=== PATIENT | male | born 1980 | race Caucasian/White ===

== ENCOUNTER 2017-10-14 08:57 | Emergency (ER) | payer OTHER ==
[~2017-10-14] VITALS: Ht 185.4 cm; Wt 129.3 kg
[2017-10-14 09:01] VITALS: BP_SYST 165
[2017-10-14 09:35] VITALS: BP_SYST 165
== END 2017-10-14 09:35 | disposition home or self-care (01) ==
LOC: SED 08:57
DX: L03.012 Cellulitis of left finger (principal); Z88.1 Allergy status to other antibiotic agents
CPT/HCPCS: 99283

== ENCOUNTER 2018-03-02 09:17 | Emergency (ER) | payer OTHER ==
[~2018-03-02] VITALS: Ht 188 cm; Wt 158.3 kg
[2018-03-02 09:25] VITALS: BP_SYST 161
[2018-03-02 11:29] VITALS: BP_SYST 145
== END 2018-03-02 11:29 | disposition home or self-care (01) ==
LOC: SED 09:17
DX: L03.032 Cellulitis of left toe (principal); F41.9 Anxiety disorder, unspecified; F32.9 Major depressive disorder, single episode, unspecified; J45.909 Unspecified asthma, uncomplicated; R03.0 Elevated blood-pressure reading, without diagnosis of hypertension; Z88.1 Allergy status to other antibiotic agents
CPT/HCPCS: 99284

== ENCOUNTER 2019-09-18 14:53 | Emergency (ER) | payer OTHER ==
[~2019-09-18] VITALS: Ht 188 cm; Wt 147.4 kg
[2019-09-18 15:30] VITALS: BP_SYST 140
[2019-09-18] MEDS ORDERED: NACL 0.9% 1,000 ML IV ONE (17:09)
[2019-09-18] MEDS ORDERED: NACL 0.9% 2,000 ML IV ONE (17:15)
[2019-09-18] MEDS ORDERED: INSULIN REGULAR, HUMAN 10 UNITS/0.1 ML INJ IVP ONE (17:15)
[2019-09-18 17:41] LABS: BASOPHILS # (AUTO) 0.1 K/uL (0.0-0.2); EOSINOPHILS # (AUTO) 0.1 K/uL (0.0-0.4); EOSINOPHILS % (AUTO) 1.2 % (0.0-4.0); HEMATOCRIT 47.2 % (36-54); HEMOGLOBIN 15.5 g/dL (14.0-18.0); LYMPHOCYTES # (AUTO) 2.7 K/uL (1.0-5.5); LYMPHOCYTES % (AUTO) 37.5 % (20.5-51.5); MEAN CORPUSCULAR HEMOGLOBIN 28 pg (27-31); MEAN CORPUSCULAR HGB CONC 33 % (32-36); MEAN CORPUSCULAR VOLUME 85 fL (79.0-98.0); MONOCYTES # (AUTO) 0.4 K/uL (0.0-1.0); MONOCYTES % (AUTO) 5.6 % (1.7-9.3); NEUTROPHILS % (AUTO) 54.7 % (40.0-70.0); PLATELET COUNT (AUTO) 175 K/uL (130-430); RED BLOOD CELL COUNT(AUTO) 5.54 MIL/uL (4.2-6.2); RED CELL DISTRIBUTION WIDTH 14.1 % (9.0-15.0); WHITE BLOOD COUNT (AUTO) 7.2 K/uL (4.8-10.8)
[2019-09-18 17:53] LABS: CALCIUM 9.1 mg/dL (8.4-11.0); CREATININE 0.98 mg/dL (0.55-1.30); PROTHROMBIN TIME 9.6 SECS (9.5-12.5)
[2019-09-18 17:58] LABS: TOTAL BILIRUBIN 0.2 mg/dL (0.0-1.0)
--- NOTE | 2019-09-18 18:47 | NUR ---
Patient to ER bed 7 to gown for evaluation. Side rails up.
--- NOTE | 2019-09-18 18:50 | NUR ---
pt arrives from home w/ BS of 307. pt is newly dx w/ DM and is not complaint w/ meds
--- NOTE | 2019-09-18 19:10 | NUR ---
# 22 gauge angiocath placed to right hand. Use of asceptic technique. Opsite placed over site. Blood return noted. Blood for lab drawn from site. Flushed with 10 cc of normal saline. No evidence of infiltration noted. Patient tolerated well.
--- NOTE | 2019-09-18 19:15 | NUR ---
current BS is 258. medicated w/ Insulin 4 units.
[2019-09-18 19:35] LABS: BILIRUBIN,URINE NEGATIVE (NEGATIVE); BLOOD, URINE NEGATIVE (NEGATIVE); CLARITY/URINE CLEAR (CLEAR); COLOR,URINE YELLOW (YELLOW); GLUCOSE,URINE 3+ (NEGATIVE); KETONES,URINE TRACE (NEGATIVE); LEUKOCYTE ESTERASE ,URINE NEGATIVE (NEGATIVE); NITRITE, URINE NEGATIVE (NEGATIVE); PROTEIN URINE NEGATIVE (NEGATIVE)
--- NOTE | 2019-09-18 19:38 | NUR ---
report given to Garrett VAUGHN. pt is in stable condition
--- NOTE | 2019-09-18 19:38 | NUR ---
No needs verbalized at this time.
--- NOTE | 2019-09-18 20:00 | NUR ---
Pt seen by Dr. Grimm on previous shift.
[2019-09-18 20:10] VITALS: BP_SYST 132
[2019-09-18 20:34] LABS: BACTERIA,URINE RARE /HPF (None Seen); RBC,URINE NONE SEEN /HPF (0-3); WBC,URINE 0-3 /HPF (0-3)
[2019-09-18 20:36] LABS: MUCUS,URINE None Seen /LPF (None Seen)
== END 2019-09-18 20:10 | disposition home or self-care (01) ==
LOC: SED 14:53
DX: E11.65 Type 2 diabetes mellitus with hyperglycemia (principal); E66.9 Obesity, unspecified; I10 Essential (primary) hypertension; J45.909 Unspecified asthma, uncomplicated; F32.9 Major depressive disorder, single episode, unspecified; Z88.1 Allergy status to other antibiotic agents; Z68.41 Body mass index [BMI] 40.0-44.9, adult
CPT/HCPCS: 36415; 80053; 81000; 82150; 82962; 83605; 83690; 85025; 85610; 85730; 87040; 96361; 96374; 99283; J1815; J7030

== ENCOUNTER 2021-03-15 21:27 | Emergency (ER) | payer OTHER ==
[~2021-03-15] VITALS: Ht 185.4 cm; Wt 145.1 kg
[2021-03-15 21:30] VITALS: BP_SYST 142
--- NOTE | 2021-03-15 21:36 | NUR ---
Patient to ER bed 5 to gown for evaluation. Side rails up. Report given to Edmond VAUGHN.
--- NOTE | 2021-03-15 21:40 | NUR ---
Pt BIB BLS from home c/o constipation x5 days, +chills. Pt reports taking Colace and Miralax with no relief in symptoms. +Nausea
--- NOTE | 2021-03-15 22:15 | NUR ---
Pt STEFAN to CT
[2021-03-15 22:19] LABS: BASOPHILS % (AUTO) 0.2 % (0.0-2.0); EOSINOPHILS % (AUTO) 0.6 % (0.0-4.0); HEMATOCRIT 42.5 % (36-54); LYMPHOCYTES # (AUTO) 1.7 K/uL (1.0-5.5); LYMPHOCYTES % (AUTO) 28.1 % (20.5-51.5); MEAN CORPUSCULAR HEMOGLOBIN 27 pg (27-31); MEAN CORPUSCULAR HGB CONC 33 % (32-36); MEAN CORPUSCULAR VOLUME 83 fL (79.0-98.0); MONOCYTES % (AUTO) 0.5 % (1.7-9.3); NEUTROPHILS # (AUTO) 4.2 K/uL (1.8-7.7); NEUTROPHILS % (AUTO) 70.6 % (40.0-70.0); PLATELET COUNT (AUTO) 179 K/uL (130-430); RED BLOOD CELL COUNT(AUTO) 5.12 MIL/uL (4.2-6.2); RED CELL DISTRIBUTION WIDTH 14.4 % (9.0-15.0)
[2021-03-15 22:21] LABS: CREATININE 1.26 mg/dL (0.55-1.30); POTASSIUM 3.8 mmol/L (3.5-5.1)
[2021-03-15 22:27] LABS: ALBUMIN 3.7 g/dL (3.4-4.8); TOTAL BILIRUBIN 0.5 mg/dL (0.0-1.0)
--- NOTE | 2021-03-15 22:30 | NUR ---
Pt back from CT
[2021-03-15 22:32] LABS: PROTHROMBIN TIME 10.4 SECS (9.5-12.5)
--- NOTE | 2021-03-15 22:34 | NUR ---
Dr. Zavaleta at bedside for MSE.
[2021-03-15] MEDS ORDERED: NACL 0.9% 1,000 ML IV ONE (23:00)
--- NOTE | 2021-03-15 23:00 | NUR ---
# 20 gauge angiocath placed to RIGHT HAND. Use of asceptic technique. Opsite placed over site. Blood return noted. Flushed with 10 cc of normal saline. No evidence of infiltration noted. Patient tolerated well.
[2021-03-15 23:09] LABS: C-REACTIVE PROTEIN QUANT 2.3 mg/dL (0-0.5)
[2021-03-16 00:28] LABS: BILIRUBIN,URINE NEGATIVE (NEGATIVE); BLOOD, URINE NEGATIVE (NEGATIVE); CLARITY/URINE CLEAR (CLEAR); COLOR,URINE YELLOW (YELLOW); GLUCOSE,URINE NEGATIVE (NEGATIVE); KETONES,URINE TRACE (NEGATIVE); LEUKOCYTE ESTERASE ,URINE NEGATIVE (NEGATIVE); NITRITE, URINE NEGATIVE (NEGATIVE); PROTEIN URINE NEGATIVE (NEGATIVE)
--- NOTE | 2021-03-16 00:45 | NUR ---
Patient resting quietly. No acute distress noted. Vital signs within normal range.
--- NOTE | 2021-03-16 01:00 | NUR ---
Dr. Zavaleta at bedside updating patient.
[2021-03-16] MEDS ORDERED: MAGNESIUM CITRATE 300 ML ORAL SOLUTION PO ONE (01:15)
[2021-03-16 01:25] VITALS: BP_SYST 142
--- NOTE | 2021-03-16 01:25 | NUR ---
Patient given written and verbal discharge instructions and verbalizes understanding. ER MD discussed with patient the results and treatment provided. Patient in stable condition. ID arm band removed. IV catheter removed intact and dressing applied, no active bleeding. Rx of NONE given. Patient educated on pain management and to follow up with PMD. Pain Scale 0/10. Opportunity for questions provided and answered. Medication side effect fact sheet provided.
== END 2021-03-16 01:25 | disposition home or self-care (01) ==
LOC: SED 21:27
DX: K59.00 Constipation, unspecified (principal); I10 Essential (primary) hypertension; E11.9 Type 2 diabetes mellitus without complications; J45.909 Unspecified asthma, uncomplicated; Z88.1 Allergy status to other antibiotic agents; F32.9 Major depressive disorder, single episode, unspecified; F41.9 Anxiety disorder, unspecified
CPT/HCPCS: 36415; 74018; 74176; 76376; 80053; 81003; 82150; 83605; 83690; 85025; 85610; 85730; 86140; 96360; 99285; J7030